=== PATIENT | female | born 1990 | race Asian ===

== ENCOUNTER 2017-01-18 22:11 | Emergency (ER) | payer OTHER ==
[~2017-01-18] VITALS: Ht 167.6 cm; Wt 49.3 kg
[2017-01-18 22:22] VITALS: TEMP 36.6; Ht 167.6 cm; Wt 49.3 kg
[2017-01-18] MEDS ORDERED: SODIUM CHLORIDE 0.9% 1000ML 1,000 ML IV STA (22:35)
[2017-01-18] MEDS ORDERED: FAMOTIDINE 20MG/102 ML D5W IV STA (22:35)
[2017-01-18] MEDS ORDERED: DiphenhydrAMINE HCL 50 MG/ML VIAL IV STA (22:35)
--- NOTE | 2017-01-18 22:39 | EMERGENCY ROOM VISIT NOTE ---
History Report prepared by Tati: Reza Mckeon Under the Supervision of: Dr. Bharath Medeiros M.D. First contact with patient: 22:32 Chief Complaint: ALLERGIC REACTION Stated Complaint: ALLERGIC REACTION Nursing Triage Summary: Ate salmon and broke out in rash with swelling of the face. When it first happened patient was "a little" SOB but she states now she feels much better. Patient does not appear to be in any respiratory distress at this time. Face red and swollen History of Present Illness The patient is a 26 year old female who presents to the Emergency Room for evaluation of allergic reaction. She was eating sushi about an hour ago with a group of people when she broke out in hives. Associated with facial swelling, itching, and shortness of breath. No blue lips nor inability to breathe nor tongue/throat swelling. Improving without medications though still hives and itching. No previous allergic reactions. Notes [place] and [place] were in sushi. No medications nor interventions prior to arrival. Nothing makes better nor worse. Denies recent medications. No headache, neck pain, cp, abdominal pain, leg swelling, fevers, chills, nausea, vomiting, nor other symptoms. She notes some mild loose stools recently. Source of History: patient Onset: 1 hour ago Position: other (global) Symptom Intensity: moderate Quality: other (Hives) Timing: constant Associated Symptoms: + SOB, No fevers, No chills, No headache, No neck pain , No chest pain, No nausea, No vomiting, No abdominal pain Note: She has some facial welling and itching. Review of Systems See HPI for pertinent positives & negatives. A total of 10 systems reviewed and were otherwise negative. Past Medical & Surgical No past history. Family History Patient reports no known family medical history. Social History Smoking Status: Never Smoker Alcohol Use: none Drug Use: none Marital Status: single Housing Status: lives with roommate Occupation Status: [employer] student Current/Historical Medications Scheduled Prednisone (Prednisone), 1 TAB PO DAILY Scheduled PRN Diphenhydramine HCl (Diphenhydramine HCl), 1 TAB PO Q6 PRN for ALLERGIC REACTION Allergies Coded Allergies: No Known Allergies (Unverified , 01/18/17) Physical Exam Vital Signs Date Time Temp Pulse Resp B/P (MAP) Pulse Ox O2 Delivery O2 Flow Rate FiO2 01/18/17 23:51 71 20 101/66 96 01/18/17 22:59 77 01/18/17 22:51 86 27 91/64 100 Room Air 01/18/17 22:31 97 Room Air 01/18/17 22:31 103 22 118/68 98 Room Air 01/18/17 22:22 36.6 124 18 110/59 90 Room Air Physical Exam GENERAL: Patient is well appearing and in no acute distress. HEENT: No acute trauma, normocephalic atraumatic, mucous membranes moist, no nasal congestion, no scleral icterus. NECK: No stridor, no adenopathy, no meningismus, trachea is midline. LUNGS: No dyspnea. Clear to auscultation and equal bilaterally. No wheeze, no rhonchi. HEART: Regular rate and rhythm. No murmurs, rubs, gallops appreciated. ABDOMEN: Soft, nontender, bowel sounds positive, no masses appreciated, no peritonitis. BACK: No midline tenderness, no CVA tenderness EXTREMITIES: Normal motion all extremities, no cyanosis, no edema. NEUROLOGIC: Alert and oriented, no acute motor or sensory deficits, no focal weakness, cranial nerves grossly intact. SKIN: Diffuse hives with some areas of raised urticarial rash. Otherwise no jaundice, no diaphoresis. Medical Decision & Procedures Medications Administered Medications (Trade) Dose Ordered Sig/Peg Route Start Time Stop Time Status Last Admin Dose Admin Famotidine (Pepcid 20mg/100 ml) 20 mg ONE STAT IV 01/18/17 22:35 01/18/17 22:36 DC 01/18/17 22:44 20 MG Diphenhydramine HCl (Benadryl Inj) 50 mg NOW STAT IV 01/18/17 22:35 01/18/17 22:36 DC 01/18/17 22:45 50 MG Dexamethasone Sodium Phosphate (Decadron Inj) 10 mg NOW ONCE IV 01/18/17 22:45 01/18/17 22:46 DC 01/18/17 22:45 10 MG Sodium Chloride 1,000 ml @ 999 mls/hr Q1H1M STAT IV 01/18/17 22:35 01/18/17 23:35 DC 01/18/17 22:35 999 MLS/HR ED Course 2231: The patient was evaluated in room B12A. A complete history and physical exam was performed. 2235: Ordered Sodium Chloride 1000 ml @ 999 mls/hr IV, Benadryl Inj 50 mg IV, Famotidine 20 mg IV 2245: Ordered Decadron Inj 10 mg IV 2334: The patient is doing well at this time, in no distress. 2350: Reevaluated the patient. Discussed results and discharge instructions: She verbalized understanding and agreement. The patient is ready for discharge. Medical Decision Differential: Allergic Reaction, Urticaria, Anaphylaxis, Hernandez-Quentin Syndrome, Toxic Epidermal Necrolysis, Erythema Multiforme, amongst other etiologies entertained. 26 yr old female arrives with complaint of allergic reaction after eating sushi. No other people with similar reaction who ate same. Given darío/dec/pep with resolution of symptoms. Looks well. No evidence anaphylaxis. Stable and wishes to go home. Will continue low dose Pred over next few days. Rx diphenhydramine so that she knows what to use at home. Medication Reconcilliation Current Medication List: was personally reviewed by me Blood Pressure Screening Patient's blood pressure: Normal blood pressure Blood pressure disposition: Did not require urgent referral Impression Primary Impression: Allergic reaction Scribe Attestation The scribe's documentation has been prepared under my direction and personally reviewed by me in its entirety. I confirm that the note above accurately reflects all work, treatment, procedures, and medical decision making performed by me. Departure Information Dispostion Home / Self-Care Prescriptions Diphenhydramine HCl (Diphenhydramine HCl) 25 Mg Cap 1 TAB PO Q6 Y for ALLERGIC REACTION, #25 TAB Prov: Bharath Medeiros M.D. 01/18/17 Prednisone (Prednisone) 20 Mg Tab 1 TAB PO DAILY for 4 Days, #4 TAB Prov: Bharath Medeiros M.D. 01/18/17 Referrals [facility] HOME CARE DOCUMENTATION FORM, IMPORTANT VISIT INFORMATION Patient Instructions ED Allergic React Food, My [facility] Problem Qualifiers Primary Impression: Allergic reaction Encounter type: initial encounter Qualified Codes: T78.40XA - Allergy, unspecified, initial encounter
[2017-01-18] MEDS ORDERED: DEXAMETHASONE SOD INJ 10 MG/ML VIAL IV ONE (22:45)
[2017-01-18] MEDS ORDERED: BND25X PO (23:45)
[2017-01-18] MEDS ORDERED: PRED20TA PO (23:45)
[2017-01-18 23:51] VITALS: BP 101/66; PULSE 71; O2SAT 96
== END 2017-01-18 23:51 | disposition home or self-care (01) ==
LOC: C.EDB 22:12
DX: T78.40XA Allergy, unspecified, initial encounter (principal); X58.XXXA Exposure to other specified factors, initial encounter